=== PATIENT | male | born 1980 | race Caucasian/White ===

== ENCOUNTER 2017-05-23 12:40 | Emergency (ER) | payer OTHER ==
--- NOTE | 2017-05-23 13:56 | CT ---
Head CT Technique: Multiple axial sections through the brain were obtained. Intravenous contrast was not utilized. Findings: Moderate mucosal thickening is noted within the frontal sinus, ethmoid sinus, upper left maxillary and sphenoid sinus. Mastoid sinuses and middle ear cavities are clear. No acute calvarial abnormality is identified. Ventricles along with basal cisterns and sulci over the convexities are within normal limits for the patient's age. No abnormal parenchymal densities are seen. No evidence of intracranial hemorrhage. No midline shift or mass effect is seen. Impression: 1. Moderate sinus disease. 2. No acute intracranial abnormality is identified. Diagnostic code #3
[2017-05-23 14:04] VITALS: BP 117/70
[2017-05-23] MEDS ORDERED: Acetaminophen 325 MG Tab PO ONE (14:05)
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
== END 2017-05-23 14:13 | disposition home or self-care (01) ==
LOC: JD.ED 12:40
DX: S06.0X0A Concussion without loss of consciousness, initial encounter (principal); S00.03XA Contusion of scalp, initial encounter; Y04.2XXA Assault by strike against or bumped into by another person, initial encounter
CPT/HCPCS: 70450; 99284; A9270

== ENCOUNTER 2020-11-08 09:08 | Emergency (ER) | payer SELFPAY ==
--- NOTE | 2020-11-08 09:33 | EDM.PDOC ---
ED HPI GENERAL MEDICAL PROBLEM - General Chief Complaint: Trauma Stated Complaint: FELL OFF LADDER/NECK PAIN Time Seen by Provider: 11/08/20 09:26 Source of Information: Reports: Patient History Limitations: Reports: No Limitations - History of Present Illness INITIAL COMMENTS - FREE TEXT/NARRATIVE: 40-year-old female presents to the ED for evaluation of left-sided neck pain and head trauma. Patient states he was up on the third or fourth step of a 8 foot ladder and lost his balance and fell. He fell hard onto frozen ground landing on the left side of his head with reported loss of consciousness for 5 minutes or more. Apparently his [id number] was present and helped carry him to the vehicle. No associated nausea or vomiting. Complains of pain left side of head with no associated nausea vomiting. Left neck is very painful and any movement I would i.e. lateral rotation flexion or extension. He was therefore placed in a cervical collar. He has mild contusion to his left shoulder but no acute injury to the collarbone upper arm or ribs. Mild tenderness on the left posterior buttock over the SI joint. He can walk normally. Injury occurred about 0730 hrs. this morning. Onset: Today, Sudden Onset Date: 11/08/20 Onset Time: 07:30 Duration: Hour(s):, Getting Worse Location: Reports: Head, Neck (Lateral neck pain.) Quality: Reports: Ache (Sided head discomfort) Severity: Moderate Improves with: Reports: Rest Worsens with: Reports: Movement Context: Reports: Trauma (From a ladder approximately 3 feet up and he is 6 feet tall. Landed hard on the left side of his head face and neck. Reported loss of consciousness for 3 to 5 minutes.). Denies: Activity, Exercise, Lifting, Sick Contact Associated Symptoms: Reports: Headaches, Loss of Appetite. Denies: Confusion, Chest Pain, Cough, cough w sputum, Diaphoresis, Fever/Chills, Malaise, Nausea/Vomiting, Rash, Seizure, Shortness of Breath, Syncope, Weakness Treatments POCKET SETTER: Reports: Other (see below) (None.) Neck Pain Score (Numeric/FACES): 8 - Related Data Allergies Allergy/AdvReac Type Severity Reaction Status Date / Time No Known Allergies Allergy Verified 11/08/20 09:26 Home Meds: Home Meds . [No Known Home Meds] 05/23/17 [History] Past Medical History - Past Health History Medical/Surgical History: Denies Medical/Surgical History Social & Family History - Caffeine Use Caffeine Use: Reports: Soda - Living Situation & Occupation Living situation: Reports: Single Occupation: Unemployed Review of Systems - Review of Systems Review Of Systems: See Below Constitutional: Denies: Chills, Diaphoresis, Fever, Weakness, Other Eyes: Denies: No Symptoms, Blindness, Drainage, Decreased Acuity, Foreign Body Sensation, Inflammation Ears: Reports: No Symptoms Nose: Reports: No Symptoms Mouth/Throat: Reports: No Symptoms, Other (Bite the inside of his mouth on the right lateral side.) Respiratory: Reports: No Symptoms Cardiovascular: Reports: No Symptoms GI/Abdominal: Reports: No Symptoms Genitourinary: Reports: No Symptoms Musculoskeletal: Reports: Back Pain Skin: Reports: No Symptoms (Patient problems with low back pain) Neurological: Reports: No Symptoms Psychiatric: Reports: No Symptoms ED EXAM, GENERAL - Physical Exam Exam: See Below Exam Limited By: No Limitations General Appearance: Alert, WD/WN, No Apparent Distress, Other Eye Exam: Bilateral Eye: Normal Inspection, PERRL (No scleral icterus or blepharal pallor.) Ears: Normal External Exam Throat/Mouth: Other (He did bite the inside of his mouth adjacent to the corner of his right lip with superficial contusions and abrasions with no need for suture repair.) Head: Other ( No obvious scalp hematoma or swelling left side of his head. Some tenderness along the temporal parietal aspect of his scalp just superior to his ear.) Neck: Normal Inspection, Tender Lateral, Tender Midline, Other (Collar was placed and even not put through any range of motion of the cervical spine because any movement). No: Supple, Full Range of Motion, Lymphadenopathy (L), Lymphadenopathy (R) Respiratory/Chest: No Respiratory Distress ( hurts.), Lungs Clear, Normal Breath Sounds, No Accessory Muscle Use, Other (Compression of his ribs) Cardiovascular: Normal Peripheral Pulses, Regular Rate, Rhythm, No Edema, No Gallop, No Murmur ( give him no pain. Sternum normal.), No Rub Peripheral Pulses: 2+: Posterior Tibial (L), Posterior Tibial (R), Dorsalis Pedis (L), Dorsalis Pedis (R), 3+: Carotid (L), Carotid (R) GI/Abdominal: Normal Bowel Sounds, Soft, Non-Tender, No Organomegaly, No Abnormal Bruit, No Mass, Pelvis Stable, Other (Scaphoid abdomen.) Back Exam: Normal Inspection, Full Range of Motion. No: CVA Tenderness (L), CVA Tenderness (R) Extremities: Normal Inspection, Normal Range of Motion, Non-Tender, No Pedal Edema, Other (Mild contusion to the deltoid musculature of his left shoulder and anterior biceps. Tenderness over the left lateral buttock area) Neurological: Alert, Oriented, CN II-XII Intact, Normal Cognition Psychiatric: Normal Affect, Normal Mood Skin Exam: Warm, Dry, Intact, Normal Color, No Rash Course - Vital Signs Last Recorded V/S: Last Vital Signs Temp 36.2 C 11/08/20 09:35 Pulse 72 11/08/20 09:35 Resp 14 11/08/20 09:35 BP 129/70 11/08/20 09:35 Pulse Ox 100 11/08/20 09:35 - Radiology Interpretation Free Text/Narrative:: 40-year-old male presents to the ED for evaluation of injury sustained from fall from a ladder this morning. He landed hard on the left side of his face head and neck. Pain is primarily throughout his cervical spine. Reportedly lost consciousness for period of time anywhere between 3 and 5 minutes. Denies any nausea vomiting. Mild headache at this time. Any movement of his neck causes pain particularly with attempted lateral rotation or flexion. He was placed in a cervical spine collar once he arrived in the ED. He has some mild contusion to the left deltoid and upper left arm. Mild contusion to the left buttock laterally. No other major injuries identified. Plan CT head neck to be done. - Re-Assessments/Exams Free Text/Narrative Re-Assessment/Exam: 11/08/20 10:08 CT head has been completed without contrast. No intracranial mass-effect or intracranial bleeding is evident. Skull no skull fractures identified. I.e. normal CT of the head. CT cervical spine has also been completed without contrast. It to reveals slight loss of the normal lordotic curvature. Likely due to muscle spasm. No fractures are identified throughout the cervical spine and no significant disc space narrowing appreciated. 11/08/20 10:17 c-collar was removed by me at [address] evaluation cleared C-spine injuries. Patient will be discharged to home. He is advised that he will have increase stiffness and soreness in his neck over the next 24 to 48 hours. Clinically he is not exhibiting any signs or symptoms of a concussion in spite of reported transient loss of consciousness. Advised to take life easy and not risk any closed head injuries over the next 2 weeks. Use Motrin 600 mg every 6 hours as needed for pain relief and ice pack to the area 1/2-hour to every 4 hours for the next 2 days and after that heat to the area. Follow-up with personal care physician 10 days time if not better. 11/08/20 10:[address] head reveals ventricles along with basal cisterns and sulci over the convexities to be within normal limits for the patient's age. No abnormal parenchymal densities are identified. No evidence of intracranial hemorrhage or mass-effect appreciated. Bone window settings wer e reviewed. Scattered mucosal thickening within the sphenoid and ethmoid sinuses as well as the frontal sinuses are seen. There is mucosal thickening noted within the maxillary sinus which appears chronic as well. No acute calvarial abnormality appreciated. CT of the cervical spine has also been over read by the radiologist. He shows moderate disc space narrowing at the C6-C7 level with posterior spurring and anterior osteophytes. Minimal disc posterior disc space narrowing and minimal posterior osteophytes are seen at the C3-4 level. Vertebral body heights are maintained. Subpleural blebs are noted within both upper lungs. Mild right-sided neuroforaminal stenosis is noted at C5-6 level. Other neuroforamina are patent. No fractures are identified and no abnormal subluxation is appreciated. Departure - Departure Time of Disposition: 10:20 Disposition: Home, Self-Care 01 Condition: Fair Clinical Impression: Sprain of ligaments of cervical spine, initial encounter Closed head injury Qualifiers: Encounter type: initial encounter Qualified Code(s): S09.90XA - Unspecified injury of head, initial encounter - Discharge Information *PRESCRIPTION DRUG MONITORING PROGRAM REVIEWED*: Not Applicable *COPY OF PRESCRIPTION DRUG MONITORING REPORT IN PATIENT PASCUAL: Not Applicable Instructions: Cervical Sprain, [id number] Referrals: PCP,None [Primary Care Provider] - Forms: ED Department Discharge Additional Instructions: Evaluation the emergency room today in regards to injuries sustained to the left side of your neck and head from a fall from a ladder. Likely contusion to the left shoulder and arm as well as well as the left buttock area. CT scan of the head was performed due to reported loss of consciousness for an unknown period of time. CT of the head is normal with no intracranial bleeding mass-effect or skull fracture. Similarly CT of the cervical spine reveals no fractures or broken bones. It appears that you have strained the surrounding ligaments and muscles. Expect to have increased stiffness and soreness over the next 48 hours and then gradual improvement over the next week to 10 days. If not better in 10 days should seek consultation with primary care physician to arrange for physiotherapy treatment. Just Motrin/ibuprofen 600 mg every 6 hours to reduce pain and inflammation. Ice pack to the area 1/2-hour out of every 4 hours today and tomorrow. After that may apply heat to the area in a similar fashion. May return to work as able. Sepsis Event Note (ED) - Evaluation Sepsis Screening Result: No Definite Risk - Focused Exam Vital Signs: Vital Signs Temp Pulse Resp BP Pulse Ox 11/08/20 09:35 36.2 C 72 14 129/70 100 11/08/20 09:21 36.2 C 69 14 121/79 100
[2020-11-08 09:35] VITALS: BP 129/70; PULSE 72
--- NOTE | 2020-11-08 10:26 | CT ---
Head CT Technique: Multiple axial sections through the brain were obtained. Intravenous contrast was not utilized. Reconstructed coronal and sagittal images were obtained. Comparison: Prior head CT exam of 05/23/17. Findings: Ventricles along with basal cisterns and sulci over the convexities are within normal limits for the patient's age. No abnormal parenchymal densities are seen. No evidence of intracranial hemorrhage. No midline shift or mass-effect is appreciated. Bone window settings were reviewed. Scattered mucosal thickening within the sphenoid and ethmoid sinuses as well as frontal sinuses is seen. There is mucosal thickening also noted within the maxillary sinuses. Mastoid sinuses show nothing acute. No acute calvarial abnormality is appreciated. Impression: 1. Chronic sinus disease which appears on prior head CT study. 2. No acute intracranial abnormality is appreciated. Diagnostic code #3
--- NOTE | 2020-11-08 10:28 | CT ---
CT cervical spine Technique: Multiple axial sections were obtained from above C1 inferiorly to below the posterior T1-2 disc space. Findings: Moderate disc space narrowing is noted at C6-7 with posterior spurring and anterior osteophytes. Minimal posterior disc space narrowing and minimal posterior osteophyte are seen at C3-4. Vertebral body heights are maintained. Subpleural blebs are noted within both upper lungs. Mild right-sided neural foraminal stenosis is noted at C5-6. Other neural foramina are patent. No fracture is appreciated. No abnormal subluxation is appreciated. Impression: 1. Mild degenerative change as noted above. 2. No acute fracture or abnormal subluxation is seen. Diagnostic code #2
== END 2020-11-08 10:23 | disposition home or self-care (01) ==
LOC: JD.ED 09:08
DX: S09.90XA Unspecified injury of head, initial encounter (principal); S13.4XXA Sprain of ligaments of cervical spine, initial encounter; S00.531A Contusion of lip, initial encounter; S40.012A Contusion of left shoulder, initial encounter; W11.XXXA Fall on and from ladder, initial encounter
CPT/HCPCS: 70450; 70450-26; 72125; 72125-26; 99284; 99284-25